=== PATIENT | male | born 1950 | race African-American/Black ===

== ENCOUNTER → 2017-03-25 | Outpatient (CLI) | payer MEDICARE | END | disposition home or self-care (01) | LOC: PCVCCLINIC 10:40 | PROVIDERS: ATTEND Internal Medicine Cardiovascular Disease | DX: I25.10 Atherosclerotic heart disease of native coronary artery without angina pectoris (principal); I10 Essential (primary) hypertension; E78.00 Pure hypercholesterolemia, unspecified; I42.9 Cardiomyopathy, unspecified; M48.00 Spinal stenosis, site unspecified; Z95.1 Presence of aortocoronary bypass graft; Z79.82 Long term (current) use of aspirin; Z79.899 Other long term (current) drug therapy; Z87.891 Personal history of nicotine dependence; Z88.8 Allergy status to other drugs, medicaments and biological substances | CPT/HCPCS: 80061; 93005; G0463 ==

== ENCOUNTER → 2017-03-30 | Outpatient (CLI) | payer MEDICARE ==
[~2017-03-30] MED LIST: DIAZEPAM 10 MG TABLET. ONE; HEPARIN SODIUM 5,000 UNIT/ML VIAL for PCVC. ONE; IODIXANOL 270 MG/ML 100 ML VIAL. ONE; IOHEXOL 350 MG/ML 100 ML VIAL. ONE; IOHEXOL 350 MG/ML 50 ML VIAL. ONE; IV NORMAL SALINE 500ML BAG 500 ML ONE; LIDOCAINE 1% Multi-Dose 20 ML VIAL. ONE; LIDOCAINE 1%/EPI 1:100,000 20 ML VIAL. ONE; MIDAZOLAM HCL/PF 2 MG/2 ML VIAL. ONE; fentaNYL PF VIAL 100 MCG/2 ML VIAL ONE; hydrALAZINE 20 MG/ML VIAL. ONE
--- NOTE | 2017-03-30 14:22 | PCVCINTER ---
EXAM: 1. AORTOGRAM AND BILATERAL LOWER EXTREMITY RUNOFF ANGIOGRAM 2. BILATERAL RENAL ANGIOGRAPHY INDICATION: Peripheral arterial disease. Coronary artery disease. Nonhealing ulcer right lower extremity. Hypertension. Renal atherosclerosis. PROCEDURE: Procedure and risks of angiography intervention is appropriate including limb loss stroke and were discussed with the patient's family and consent obtained. The a 6 [place] sheath in the right common femoral artery from previous cardiac catheterization a 5 [place] flush catheter was placed into the abdominal aorta at the level of the renal arteries and AP aortogram was performed. Catheter was positioned at the aortic bifurcation and both oblique views of the pelvis were obtained. Catheter was positioned into the right external iliac artery and right leg runoff angiography was performed. Catheter was exchanged for a visceral catheter which was placed into the right renal arteries and right renal angiograms obtained. Catheter was placed into the the left renal arteries and left renal angiograms were obtained. Catheter was advanced to the level of the left external iliac artery and left leg runoff angiography was obtained. Catheters and wires removed. Sheath was removed and hemostasis obtained using the FISH device. No immediate complications. FINDINGS: Aortogram: There is one right and one left renal artery. Mild to moderate plaque infrarenal abdominal aorta without significant stenosis or aneurysm. Pelvis: Mild plaque in the right left common iliac arteries without significant stenosis. Both internal iliac arteries are patent. Moderate plaque throughout the mid right external iliac artery causes mild stenosis not felt to be flow-limiting. Mild plaque left external iliac artery without significant stenosis. The right and left common femoral and profunda femoral arteries are patent. Right renal artery: Mild plaque proximal vessel does not cause significant stenosis. Left renal artery: Mild plaque proximal vessel does not cause significant stenosis. Right leg: Moderate plaque at the superficial femoral artery and popliteal artery without flow-limiting stenosis. The peroneal artery and posterior tibial artery are the dominant runoff vessels and show good patency throughout. High-grade stenosis mid to distal anterior tibial artery. Left leg: Scattered plaque throughout the superficial femoral artery and popliteal artery without flow-limiting stenosis. The peroneal artery and posterior tibial arteries are the dominant runoff vessels and show good patency throughout. Mild stenosis proximal anterior tibial artery with occlusion of the distal anterior tibial artery. IMPRESSION: High-grade stenosis mid to distal right anterior tibial artery and occlusion of the distal left anterior tibial artery. Otherwise no flow-limiting stenosis in either lower extremity. No high-grade aortoiliac stenosis. follow up LOC:[id number]
--- NOTE | 2017-03-31 14:49 | PCVCINTER ---
APPROVED REPORT Patient Details Patient Status: Room #: 4 The patient is a 67 year-old Male Event Personnel Kati Flaherty MD, Cory Mackenzie RN, Dai Colbert MD, Rosa Mckeon RT(R)(), Alma Adams RT(R) Risk Factors Arterial HypertensionDysplipidemia (Type: 1), Family History, Hypercholesterolemia, Last Creatanine 1Tobacco History (Former) Previous Procedures/Diagnoses Previous CABG, Previous Femoral Procedure, Previous CHFPrevious CO, CAD, Hypertension, LV dysfunction Procedure Narrative The patient was brought electively to the Cardiac Catheterization Laboratory and was prepped and draped in a sterile manner. The right femoral was infiltrated with 1% Lidocaine subcutaneous anesthesia. A sheath was inserted into the right femoral artery. Coronary angiography was performed using coronary diagnostic catheters. The right coronary system was accessed and visualized with a JR4 catheter. The left coronary system was accessed and visualized with a JL4 catheter. The left ventricle was accessed and visualized with a Straight pigtail catheter. Left ventriculogram was performed in SALINAS projection. An aortogram of the abdominal aorta was performed. Pre-demployment femoral angiogram was performed . Closure device was deployed with a 6 Fr Fish. Hemostasis was obtained with manual pressure following sheath removal without any complications. The patient tolerated the procedure well and there were no complications associated with the procedure. There was no hematoma. Hemodynamics The right atrial mean pressure is 3 mmHg. The right ventricular pressure is 120 mmHg. The pulmonary artery pressure is 120 mmHg with a mean of 3 mmHg. The mean pulmonary capillary wedge pressure is 3 mmHg. The aortic pressure is 124/66 mmHg with a mean of 92 mmHg. The left ventricular pressure is 120/4 mmHg with a mean of 3 mmHg. Conclusion #1 normal left ventricular size with mild inferior basilar and apical hypokinesis EF 45-50% range #2 abdominal aorta is intact without aneurysm single renal arteries and iliac with mild disease #3 mild ostial disease of the left main 30% giving rise to LAD and circumflex #4 LAD is moderately calcified and somewhat of an ectatic vessel with an eccentric lesions distally of 50-60% small diagonal system may be occluded #5 nondominant circumflex with the proximal OM occlusion #6 dominant right eccentric 70% in the mid vessel long subtotal area competitively filling a posterior lateral branch and no filling of the PDA #7 SVG to the PDA is briskly filling the posterior descending and retrograde collaterally filling the posterior lateral branch no significant graft disease #8 SVG to a diagonal and filling a large OM jump graft small diagonal moderate size OM to widely patent graft widely patent Recommendations and plan continue aggressive risk factor modification etiology of his chest pain is noncardiac. No lifting for 48 hours to line tub Jacuzzi or Quinn for a week I have added a combination baby aspirin and Prilosec pill I suspect some of this chest pain is GI in etiology. Also spoke of some dietary restrictions. Follow-up is arranged
== END | disposition home or self-care (01) ==
LOC: PCVCINTER 10:47
PROVIDERS: ATTEND Internal Medicine Cardiovascular Disease
DX: I70.213 Atherosclerosis of native arteries of extremities with intermittent claudication, bilateral legs (principal); I25.10 Atherosclerotic heart disease of native coronary artery without angina pectoris; I10 Essential (primary) hypertension; Z70.1 Counseling related to patient's sexual behavior and orientation
CPT/HCPCS: 36246; 36252; 75716; 76937; 93459; 99152; 99153; C1751; C1760; C1769; C1894; J0360; J1644; J2250; J3010; J3490; J7040; Q9967

== ENCOUNTER → 2017-08-13 | Outpatient (CLI) | payer MEDICARE | END | disposition home or self-care (01) | LOC: PCVCCLINIC 15:00 | DX: I25.10 Atherosclerotic heart disease of native coronary artery without angina pectoris (principal); I10 Essential (primary) hypertension; E78.00 Pure hypercholesterolemia, unspecified; I73.9 Peripheral vascular disease, unspecified; I42.9 Cardiomyopathy, unspecified; M48.00 Spinal stenosis, site unspecified; R94.31 Abnormal electrocardiogram [ECG] [EKG]; F17.210 Nicotine dependence, cigarettes, uncomplicated; Z79.899 Other long term (current) drug therapy; Z79.82 Long term (current) use of aspirin | CPT/HCPCS: 80061; 93005; G0463 ==

== ENCOUNTER → 2018-10-11 | Outpatient (CLI) | payer MEDICARE | END | disposition home or self-care (01) | LOC: PCVCCLINIC 15:00 | PROVIDERS: ATTEND Internal Medicine Cardiovascular Disease | DX: I25.10 Atherosclerotic heart disease of native coronary artery without angina pectoris (principal); I10 Essential (primary) hypertension; E78.5 Hyperlipidemia, unspecified; I65.23 Occlusion and stenosis of bilateral carotid arteries; E78.00 Pure hypercholesterolemia, unspecified; F17.210 Nicotine dependence, cigarettes, uncomplicated; Z87.19 Personal history of other diseases of the digestive system; Z88.6 Allergy status to analgesic agent | CPT/HCPCS: 36415; 80061; 93005; G0463 ==

== ENCOUNTER → 2018-11-24 | Outpatient (CLI) | payer MEDICARE ==
--- NOTE | 2018-11-24 11:38 | PCVCIMAG ---
APPROVED REPORT Laterality: Bilateral Doppler Spectral Velocity Analysis PSV / EDVPSV / EDV ECA (R) 60 / 9 cm/sECA (L) 70 / 7 cm/s dICA (R) 77 / 26 cm/sdICA (L) 71 / 21 cm/s Olamide (R) 83 / 21 cm/smICA (L) 67 / 18 cm/s pICA (R) 28 / 8 cm/spICA (L) 42 / 12 cm/s Bulb (R) 44 / 10 cm/sBulb (L) 55 / 7 cm/s dCCA (R) 59 / 9 cm/sdCCA (L) 84 / 13 cm/s mCCA (R) 74 / 9 cm/smCCA (L) 103 / 18 cm/s Vert (R) 44 / 14 cm/sVert (L) 58 / 13 cm/s ICA/CCA 1.41ICA/CCA 0.85 Findings The right carotid bulb has moderate calcified plaque. The right proximal internal carotid artery shows <40% stenosis. The right common carotid artery shows no significant stenosis. The right external carotid artery shows no significant stenosis. The left carotid bulb has moderate plaque. The left proximal internal carotid artery shows <40% stenosis. The left common carotid artery shows no significant stenosis. The left external carotid artery shows no significant stenosis. Conclusion 1. Right internal carotid artery stenosis (<40%) 2. Left internal carotid artery stenosis (<40%) 3. Antegrade vertebral flow
--- NOTE | 2018-11-24 17:17 | PCVCIMAG ---
APPROVED REPORT Study performed: 11/24/2018 11:27:51 Exam: Stress Echocardiogram Indication: CAD s/p CABG, Cardiomyopathy, Hypertension Patient Location: Echo lab Stress Nurse: Lindsay Fontenot RN Room #: 2 Status: routine Ht: 5 ft 8 in HR: 93 bpm BP: 178/98 mmHg Rhythm: NSR Medical History Medical History: CAD s/p CABG, Hyperlipidemia Cardiac Risk Factors: HTN Previous Cardiac Procedures: CABG, PCI Pretest Chest Pain Characteristics: No chest pain Exercise History: Sedentary Physical Disabilities: Back, Knees Procedure The patient underwent an Exercise Stress Test using a Manual Protocol. Blood pressure, heart rate, and EKG were monitored. An Echocardiogram was performed by armorer technician in four stages in quad fashion. At peak stress, four selected images were obtained and placed side by side with resting images for comparison. Stress Test Details Stress Test: Exercise stress was performed using a manual protocol. HR Resting HR: 93 bpmMax Heart Rate (APMHR): 151 bpm Max HR Achieved: 129 bpmTarget HR (85% APMHR): 128 bpm % of APMHR: 85 Recovery HR: 97 bpm HR response to stress: Normal HR response to stress BP Resting BP: 178/98 mmHg Max BP: 200/80 mmHg Recovery BP: 152/84 mmHg BP response to stress: Hypertensive at rest, meds held ECG Resting ECG: Sinus Rhythm, NSSTT changes Stress ECG: Sinus Rhythm, nonspecific ST-T abnormalities ST Change: Non-ischemic Maximum ST Deviation: -1.10 mm Arrhythmia: Rare PVCs Recovery ECG: Sinus Rhythm Recovery ST Change: Non-ischemic Recovery ST Deviation: -1.05 mm Recovery Arrhythmia: None Clinical Reason for Termination: Maximal effort Stress Symptoms: dyspnea,fatigue Exercise duration: 5 min 28 sec Highest Stage Achieved: Manual 1.5mph at 12% incline Exercise capacity: 4.6 METs Overall Exercise Capacity for Age: Poor Scale: Sedentary Angina Score: None No complications. Stress ECG Conclusion The patient exercised according to a Manual protocol for 5:28 mins; achieving a work level of 4.6 METS. The resting heart rate of 93 bpm thea to a maximum heart rate of 129 bpm. This value represent 85% of the maximal, age-predicted heart rate. The resting blood pressure of 178/98 mmHg, thea to a maximum blood pressure of 200/80 mmHg. The exercise test was stopped due to fatigue. Cabral Treadmill Score is 10.5 which is Low risk. Pre-Stress Echo The resting Echocardiogram showed abnormal left ventricular contractility with an estimated Ejection Fraction of about 35-40%. The resting Echocardiogram demonstrated wall motion abnormality in the septal wall consistent with CABG. . Global moderate hypokinesis is seen. Post-Stress Echo The stress Echocardiogram showed improved left ventricular contractility with an estimated Ejection Fraction of about 40-45%. All rodrigues showed some improvement in contractility post exercise. Conclusion Clinical Response: Non-ischemic Exercise Capacity: Below Average Stress ECG Response: Non-ischemic Stress Echo Images: Non-ischemic No clinical, EKG or echocardiographic evidence for ischemia. No echocardiographic evidence for exercise induced ischemia. Nonischemic stress echocardiogram with maximal exercise stress. <Conclusion> No clinical, EKG or echocardiographic evidence for ischemia. No echocardiographic evidence for exercise induced ischemia. Nonischemic stress echocardiogram with maximal exercise stress.
== END | disposition home or self-care (01) ==
LOC: PCVCIMAG 11:09
PROVIDERS: ATTEND Internal Medicine Cardiovascular Disease
DX: I65.23 Occlusion and stenosis of bilateral carotid arteries (principal); I25.10 Atherosclerotic heart disease of native coronary artery without angina pectoris; E78.00 Pure hypercholesterolemia, unspecified; I26.99 Other pulmonary embolism without acute cor pulmonale; E78.5 Hyperlipidemia, unspecified; Z95.1 Presence of aortocoronary bypass graft
CPT/HCPCS: 93325; 93351; 93880